=== PATIENT | female | born 1975 | race Caucasian/White ===

== ENCOUNTER 2018-02-16 08:04 | Day surgery (SDC) | payer OTHER ==
[2018-02-16 08:26] VITALS: BMI 38.6
--- NOTE | 2018-02-16 09:05 | CP.SDSHP ---
Same Day Surgery H & P - History Proposed Procedure: EGD Pre-Op Diagnosis: SEE NOTES - Previous Medical/Surgical History Endocrine/Metabolic: Other Neuro: Backaches Previous Surgical History: OBESITY - Allergies Allergies: Allergies No Known Allergies Allergy (Verified 02/15/18 12:22) - Physical Exam General Appearance: N Vital Signs: Vital Signs 02/16/18 08:27 Temperature 97.8 F Pulse Rate 79 Respiratory 20 Rate Blood Pressure 130/64 O2 Sat by Pulse 100 Oximetry Mental Status: Alert & Oriented x3 Neuro: WNL Heart: WNL Lungs: WNL GI: WNL - {Optional Preform as Required} Breast: WNL Abdomen: Other Rectal: WNL Integument: WNL : WNL Ortho: Other ENT: WNL - Impression Pt. Evaluated Today:Candidate for Anesthesia & Procedure: Yes - Date & Time Time: 09:05 Short Stay Discharge - Short Stay Discharge Admitting Diagnosis/Reason for Visit: DYSPEPSIA Disposition: HOME/ ROUTINE
[2018-02-16] MEDS ORDERED: Midazolam 2 MG/2 ML VIAL ONE (09:07)
[2018-02-16] MEDS ORDERED: Propofol 10 mg/ml Inj (20 ML) ONE (09:09)
[2018-02-16] MEDS ORDERED: Phytonadione 10 mg/ml Inj (Adult) SC STA (09:12)
[2018-02-16] MEDS ORDERED: Belladonna-Phenobarbital PO STA (09:21)
[2018-02-16] MEDS ORDERED: Pantoprazole 40 mg EC Tab PO STA (09:22)
[2018-02-16 09:53] VITALS: TEMP 97.7
[2018-02-16 10:25] VITALS: O2SAT 100
[2018-02-16 11:08] VITALS: BP 119/77; PULSE 75; RESP 19
== END 2018-02-16 10:40 | disposition home or self-care (01) ==
LOC: C.ENDO 08:04
PROVIDERS: ATTEND Specialist
DX: K25.9 Gastric ulcer, unspecified as acute or chronic, without hemorrhage or perforation (principal); K30 Functional dyspepsia; K29.80 Duodenitis without bleeding; E66.9 Obesity, unspecified
CPT/HCPCS: 43239; 82948; 84703; 88305; 88342; J2250; J2704; J3430